=== PATIENT | female | born 1950 | race Caucasian/White ===

== ENCOUNTER 2018-08-11 15:21 | Emergency (ER) | payer MEDICARE, OTHER ==
[2018-08-11] MEDS ORDERED: NS(*) 0.9% 1000 ML BAG 1,000 ML IV ONE ×2 (15:45→17:05)
[2018-08-11 15:53] LABS: PLATELET COUNT, AUTOMATED 176 K/uL (150-450)
[2018-08-11 16:03] LABS: INR 1.29
--- NOTE | 2018-08-11 16:08 | ER Report ---
History and Physical Time Seen By MD: 15:44 Hx. of Stated Complaint: TX UNCONSIOUS IN VEHICLE RESPONSIVE TO STERNAL RUB, ABLE TO AROUSE AND GET INTO WHEELCHAIR. SAYS THIS HAPPENS AT HIGH ALTITUDE. HPI/ROS CHIEF COMPLAINT: Confused since [place] HISTORY OF PRESENT ILLNESS: Pt her with mental status change. states "this happens whenever she get to high altitude. I thought putting a scopolamine patch and oxygen would prevent it". Pt states they are moving from [place] to [place]. Started getting confused in [place] yesterday. C/o more sob. put her on portable oxygen 3 liters. Pt blood sugar started getting elevated last night. This am read high on machine. Pt is on insulin pump. Today when driving from [place] became more confused. PT passed out in car. On arrival pt was unresponsive but responded to noxious stimuli. Pt brought back to room. Pt denies chest pain. no headache, Pt has resting tremor but states that is not new. Pt unable to give hx. states this happend two years ago at altitude and she got better when [place]. REVIEW OF SYSTEMS: Constitutional: No fever, no chills. Eyes: No discharge. ENT: No sore throat. Cardiovascular: No chest pain, no palpitations. Respiratory: No cough, + shortness of breath. Gastrointestinal: No abdominal pain, no vomiting. Genitourinary: No hematuria. Musculoskeletal: No back pain. Skin: No rashes. Neurological: No headache, +mental status change Allergies: Coded Allergies: Penicillins (Verified Allergy, Unknown, 08/11/18) Home Meds Reported Medications Clobetasol Propionate/Emoll (CLOBETASOL EMOLLIENT 0.05% CRM) 15 Gm Cream..g., 0 TP BID 08/11/18 Fluticasone Prop 50 Mcg Ns (FLONASE 50 MCG NS) 16 Gm [place].susp, 1 SPRAY NS BID, BOT 08/11/18 Gabapentin (GABAPENTIN) 300 Mg Capsule, 600 MG PO TID, CAPSULE 08/11/18 Insulin Lispro 100 Un/Ml Vial (HUMALOG 100 U/ML VIAL) 100 Unit/1 Ml Vial, 100 UNIT SQ, VIAL 08/11/18 Insulin Glargine (LANTUS) 100 Unit/Ml Soln, 100 UNIT SUBQ, ML 08/11/18 Albuterol Sulfate (PROVENTIL HFA) 6.7 Gm Inh, 2 PUFF INH Q4-6H, INH 08/11/18 Valacyclovir Hcl (VALTREX) 1,000 Mg Tablet, 1000 MG PO 08/11/18 Montelukast Sodium (SINGULAIR) 10 Mg Tablet, 1 TAB PO QDAY, TAB 08/11/18 Glucagon (GLUCAGEN) 1 Mg Kit, 1 MG IM, KIT 08/11/18 Aspirin (ASPIRIN EC) 81 Mg Tablet.dr, 81 MG PO QDAY, TAB 08/11/18 Diazepam (DIAZEPAM) 5 Mg Tablet, 5 MG PO DAILY, #5 TAB 08/11/18 Scopolamine (Transderm-Scop) 1 Mg/3 Day Patch.td.3 08/11/18 Naloxone HCl (Narcan) 4 Mg/Actuation [place], PRN 08/11/18 Meclizine Hcl (MECLIZINE HCL) 12.5 Mg Tablet, 12.5 MG PO BID 08/11/18 Ondansetron 4 Mg Odt (ONDANSETRON 4 MG ODT) 4 Mg Tab.rapdis, 8 MG PO PRN, TAB 08/11/18 Methadone Hcl (METHADONE HCL) 10 Mg Tab, 10 MG PO Q8-12H, TAB 08/11/18 Sucralfate (CARAFATE) 1 Gm/10 Ml Oral.susp, 1 GM PO 08/11/18 Paroxetine Hcl (PAXIL) 20 Mg Tablet, 10 MG PO QDAY, TAB 08/11/18 Paroxetine Hcl (PAXIL) 20 Mg Tablet, 7.5 MG PO HS, TAB 08/11/18 Lansoprazole (PREVACID) 30 Mg Capsule.dr, 15 MG PO QDAY, CAP 08/11/18 Past Medical/Surgical History Pmhx: dm, high altitude sickness, fibromyalgia,gerd, barrets ds Pshx: pelvis fx, femur fx, volvus of colon with surgical resection Reviewed Nurses Notes: Yes Old Medical Records Reviewed: No (never here before) Smoking Status: Former Smoker Hx Alcohol Use: No Constitutional Vital Sign - Last 24 Hours 08/11/18 08/11/18 08/11/18 08/11/18 15:28 15:30 15:40 15:45 Temp 98.7 Pulse 89 79 78 Resp 26 14 23 B/P (MAP) 134/62 139/76 (97) 144/67 (92) Pulse Ox 83 93 96 O2 Delivery Nasal Cannula 08/11/18 08/11/18 08/11/18 08/11/18 15:50 16:00 16:10 16:15 Pulse 76 ??? Resp 18 B/P (MAP) 105/84 (91) 121/87 (98) ???/??? (1665) Pulse Ox 98 08/11/18 08/11/18 08/11/18 08/11/18 16:20 16:24 16:25 16:30 Pulse 79 Resp 18 B/P (MAP) 145/77 (99) 146/130 (135) Pulse Ox 94 O2 Flow Rate 3.0 3.0 08/11/18 08/11/18 08/11/18 08/11/18 16:40 16:45 16:50 17:00 Pulse 78 81 Resp 22 14 B/P (MAP) 128/51 (76) 80/67 (71) 83/66 (72) Pulse Ox 93 91 08/11/18 08/11/18 08/11/18 08/11/18 17:10 17:15 17:20 17:30 Pulse 80 79 Resp 18 25 B/P (MAP) 116/68 (84) 94/73 (80) 108/73 (85) Pulse Ox 94 91 08/11/18 08/11/18 17:40 17:45 Pulse 82 Resp 12 B/P (MAP) 101/40 (60) Pulse Ox 96 Intake and Output 08/11/18 08/11/18 08/12/18 14:59 22:59 06:59 Intake Total 1000 ml Output Total 1350 ml Balance -350 ml Physical Exam General Appearance: The patient is alert, has no immediate need for airway protection and no signs of toxicity. Eyes: Pupils equal and round no pallor or injection, EOMI ENT: no pharyngeal erythema or exudates, Mucous membranes are moist, TM are nl b/l Respiratory: There are no retractions, lungs are clear to auscultation. Cardiovascular: Regular rate and rhythm. pulses are equal and symmetrical Gastrointestinal: Abdomen is soft and non tender, no masses, bowel sounds normal, no guarding, no rigidity or rebound Neurological: Cranial nerves II-XII grossly intact, no sensory or motor loss, upper and lower extremity strength 5/5 Skin: Warm and dry, no rashes. Musculoskeletal: Neck is supple non tender, no vertebral tenderness Extremities are nontender, nonswollen and have full range of motion. DIFFERENTIAL DIAGNOSIS: After history and physical exam differential diagnosis was considered for DKA, intracranial bleed, ALtitiude sickness, electrolyte abnl, acs, syncope Medical Decision Making Data Points Result Diagram: 08/11/18 0000 08/11/18 1739 Laboratory Hematology Test 08/11/18 00:00 08/11/18 16:05 08/11/18 17:39 Red Blood Count 4.16 M/uL (4.17-5.56) Mean Corpuscular Volume 94.5 fL (80.0-96.0) Mean Corpuscular Hemoglobin 29.7 pg (26.0-33.0) Mean Corpuscular Hemoglobin Concent 31.4 g/dL (32.0-36.0) Red Cell Distribution Width 17.7 % (11.5-14.5) Mean Platelet Volume 9.8 fL (7.2-11.1) Neutrophils (%) (Auto) 88.2 % (39.4-72.5) Lymphocytes (%) (Auto) 5.4 % (17.6-49.6) Monocytes (%) (Auto) 6.1 % (4.1-12.4) Eosinophils (%) (Auto) 0.0 % (0.4-6.7) Basophils (%) (Auto) 0.3 % (0.3-1.4) Nucleated RBC Relative Count (auto) 0.0 /100WBC Neutrophils # (Auto) 10.4 K/uL (2.0-7.4) Lymphocytes # (Auto) 0.6 K/uL (1.3-3.6) Monocytes # (Auto) 0.7 K/uL (0.3-1.0) Eosinophils # (Auto) 0.0 K/uL (0.0-0.5) Basophils # (Auto) 0.0 K/uL (0.0-0.1) Nucleated RBC Absolute Count (auto) 0.00 K/uL Prothrombin Time 16.2 seconds (12.0-14.4) Prothromb Time International Ratio 1.29 Activated Partial Thromboplast Time 32 seconds (23-35) Lactate 2.8 mmol/L (0.7-2.1) Magnesium Level 2.4 mg/dl (1.7-2.2) Total Bilirubin 0.6 mg/dl (0.2-1.3) Aspartate Amino Transf (AST/SGOT) 515 U/L (0-35) Alanine Aminotransferase (ALT/SGPT) 343 U/L (0-56) Alkaline Phosphatase 212 U/L (0-126) Total Creatine Kinase 2443 U/L (30-135) Creatine Kinase MB 60 U/L Creatine Kinase MB % 2 % Troponin I 1.520 ng/ml Total Protein 6.6 g/dl (6.3-8.2) Albumin 4.1 g/dl (3.5-5.0) Serum Alcohol < 10 mg/dl Blood Gas Puncture Site Right radial Blood Gas Patient Temperature 98.0 DEGREES Arterial Blood pH 7.32 (7.35-7.45) Arterial Blood Partial Pressure CO2 50 mmHg (32-37) Arterial Blood Partial Pressure O2 96 mmHg (60-80) Arterial Blood HCO3 26 mmol/L (20-26) Arterial Blood Oxygen Saturation 97 % (92-100) Arterial Blood Base Excess 0.0 mmol/L Ryan Test Acceptable Oxygen Liters/Minute 42 Sodium Level 136 mmol/L (137-145) Potassium Level 5.1 mmol/L (3.5-5.0) Chloride Level 96 mmol/L (98-107) Carbon Dioxide Level 29 mmol/L (22-31) Blood Urea Nitrogen 51 mg/dl (7-18) Creatinine 2.30 mg/dl (0.52-1.04) Glomerular Filtration Rate Calc 21.1 Random Glucose 401 mg/dl (75-110) Calcium Level 8.7 mg/dl (8.4-10.2) Chemistry Test 08/11/18 00:00 08/11/18 16:05 08/11/18 17:39 White Blood Count 11.8 k/uL (4.5-11.0) Red Blood Count 4.16 M/uL (4.17-5.56) Hemoglobin 12.4 g/dL (12.0-16.0) Hematocrit 39.4 % (34.0-47.0) Mean Corpuscular Volume 94.5 fL (80.0-96.0) Mean Corpuscular Hemoglobin 29.7 pg (26.0-33.0) Mean Corpuscular Hemoglobin Concent 31.4 g/dL (32.0-36.0) Red Cell Distribution Width 17.7 % (11.5-14.5) Platelet Count 176 K/uL (150-450) Mean Platelet Volume 9.8 fL (7.2-11.1) Neutrophils (%) (Auto) 88.2 % (39.4-72.5) Lymphocytes (%) (Auto) 5.4 % (17.6-49.6) Monocytes (%) (Auto) 6.1 % (4.1-12.4) Eosinophils (%) (Auto) 0.0 % (0.4-6.7) Basophils (%) (Auto) 0.3 % (0.3-1.4) Nucleated RBC Relative Count (auto) 0.0 /100WBC Neutrophils # (Auto) 10.4 K/uL (2.0-7.4) Lymphocytes # (Auto) 0.6 K/uL (1.3-3.6) Monocytes # (Auto) 0.7 K/uL (0.3-1.0) Eosinophils # (Auto) 0.0 K/uL (0.0-0.5) Basophils # (Auto) 0.0 K/uL (0.0-0.1) Nucleated RBC Absolute Count (auto) 0.00 K/uL Prothrombin Time 16.2 seconds (12.0-14.4) Prothromb Time International Ratio 1.29 Activated Partial Thromboplast Time 32 seconds (23-35) Lactate 2.8 mmol/L (0.7-2.1) Magnesium Level 2.4 mg/dl (1.7-2.2) Total Bilirubin 0.6 mg/dl (0.2-1.3) Aspartate Amino Transf (AST/SGOT) 515 U/L (0-35) Alanine Aminotransferase (ALT/SGPT) 343 U/L (0-56) Alkaline Phosphatase 212 U/L (0-126) Total Creatine Kinase 2443 U/L (30-135) Creatine Kinase MB 60 U/L Creatine Kinase MB % 2 % Troponin I 1.520 ng/ml Total Protein 6.6 g/dl (6.3-8.2) Albumin 4.1 g/dl (3.5-5.0) Serum Alcohol < 10 mg/dl Blood Gas Puncture Site Right radial Blood Gas Patient Temperature 98.0 DEGREES Arterial Blood pH 7.32 (7.35-7.45) Arterial Blood Partial Pressure CO2 50 mmHg (32-37) Arterial Blood Partial Pressure O2 96 mmHg (60-80) Arterial Blood HCO3 26 mmol/L (20-26) Arterial Blood Oxygen Saturation 97 % (92-100) Arterial Blood Base Excess 0.0 mmol/L Ryan Test Acceptable Oxygen Liters/Minute 42 Glomerular Filtration Rate Calc 21.1 Calcium Level 8.7 mg/dl (8.4-10.2) Coagulation Test 08/11/18 00:00 Prothrombin Time 16.2 seconds Prothromb Time International Ratio 1.29 Activated Partial Thromboplast Time 32 seconds Toxicology Test 08/11/18 00:00 Serum Alcohol < 10 mg/dl EKG/Imaging EKG Interpretation NSr @ 77 with t wave inversions V1-4 Imaging no cardimegally, question of patchy are on right, Compression fx of T11 ED Course/Re-evaluation Clinical Indication for ER IV: IV Access ED Course 08/11/2018 4:31:29 pm Pts labs are coming back abnormal. Pts blood sugar is in 600s and potassium is above 6. will give IV insulin. Pt is also getting Fluids. PTs troponin also elevated. Pts renal function is abnormal. Repeat ekg after troponin is similar to initial ekg with inverted t waves. Pt denies chest pain and states her breathing is better on oxygen. PTs xray does show a hazy area on right side however pt denies a cough and is afebrile, it was suggested to have it followed with repeat imaging. I did discuss with pt and the need for transfer. They would like to [place] [facility]. They are okay with [facility]. Will await CT and then call [facility]. 08/11/2018 4:46:[address] of head is negative for bleed. Call out to [facility] 08/11/2018 5:29:21 pm Nixon being placed in patient for monitoring I/Os. Pts cpk is elevated but CKMB index is normal. I suspect pt is dry. Pt has second Liter of NSS hanging. PT was accepted by Dr. rizzo at [facility] to medical floor. Will recheck pts BMP prior to transfer. 08/11/2018 6:09:24 pm PTs repeat bmp is back. will redose of 5mg Insulin IV. EMS is here for transport. PT is stable at this time for transport Decision to Disposition Date: Aug 11, 2018 Decision to Disposition Time: 17:33 Depart Departure Latest Vital Signs Vital Signs Date Time Temp Pulse Resp B/P (MAP) Pulse Ox O2 Delivery O2 Flow Rate FiO2 08/11/18 17:45 82 12 96 08/11/18 17:40 101/40 (60) 08/11/18 16:25 3.0 08/11/18 15:28 98.7 Nasal Cannula Impression: Primary Impression: Hyperglycemia without ketosis Additional Impressions: Mental status alteration Renal insufficiency Elevated troponin Syncope Hyperkalemia Condition: Condition Unchanged Disposition: XFER TO [facility] Problem Qualifiers Additional Impressions: Mental status alteration Altered mental status type: unspecified Qualified Codes: R41.82 - Altered mental status, unspecified Syncope Syncope type: unspecified Qualified Codes: R55 - Syncope and collapse LUIS ADAMS DO Aug 11, 2018 16:08
--- NOTE | 2018-08-11 16:20 | EKG ---
FACILITY: [facility] PATIENT NAME: SRIDEVI BARROS : [id number] MR: [id number] V: [id number] EXAM DATE: ORDERING PHYSICIAN: LUIS ADAMS TECHNOLOGIST: JHONATHAN Test Reason : ALTERED MENTAL STATUs Blood Pressure : / mmHG Vent. Rate : 080 BPM Atrial Rate : 080 BPM P-R Int : 166 ms QRS Dur : 084 ms QT Int : 318 ms P-R-T Axes : 055 088 -12 degrees QTc Int : 366 ms Normal sinus rhythm ST and T wave abnormality, consider anterior ischemia Abnormal ECG No previous ECGs available Confirmed by CLAUDIA PEGUERO ([id number]) on 08/12/2018 12:59:40 AM Referred By: DONNA Confirmed By:CLAUDIA PEGUERO
--- NOTE | 2018-08-11 16:26 | RADIOLOGY IMAGING REPORT ---
FACILITY: [facility] - [place] PATIENT NAME: Corin Ndiaye : 1950 MR: [id number] V: [id number] EXAM DATE: ORDERING PHYSICIAN: LUIS ADAMS TECHNOLOGIST: Location: [facility] [place] Patient: Corin Ndiaye : 1950 Visit/Account:[id number] Date of Sevice: 08/11/2018 2 VIEWS CHEST INDICATION: Syncope, confusion and chest pain. COMPARISON: None available FINDINGS: Cardiomediastinal silhouette and pulmonary vessels within normal limits. Patchy hazy opacities seen in the right midlung. The remaining lung moraes are clear. There is no pneumothorax or pleural effusion. No discrete nodule. Upper abdomen is unremarkable. There is mild compression of the T11 vertebral body without retropulsi on. No other indication of acute fracture or bony lesion. IMPRESSION: 1. Patchy hazy opacities seen in the right midlung may represent early pneumonia. Suggest follow-up f ilms to assess for clearing or other etiologies. 2. Mild compression of the T11 vertebral body without retropulsion. Age of which is indeterminate. Report Dictated By: Jersey Loyola at 08/11/2018 4:21 PM Report E-Signed By: Jersey Loyola at 08/11/2018 4:22 PM WSN:[id number]
[2018-08-11] MEDS ORDERED: INSU HUM REG 100 U/ML(ER ONLY) 10 ML VIAL IV ONE (16:30)
--- NOTE | 2018-08-11 16:33 | EKG ---
FACILITY: [facility] - [place] PATIENT NAME: SRIDEVI BARROS : [id number] MR: [id number] V: [id number] EXAM DATE: ORDERING PHYSICIAN: LUIS ADAMS TECHNOLOGIST: JHONATHAN Test Reason : REPEAT Blood Pressure : / mmHG Vent. Rate : 077 BPM Atrial Rate : 077 BPM P-R Int : 152 ms QRS Dur : 084 ms QT Int : 364 ms P-R-T Axes : 063 087 -10 degrees QTc Int : 411 ms Normal sinus rhythm T wave abnormality, consider anterior ischemia Abnormal ECG When compared with ECG of 11-AUG-2018 15:24, Relatively unchanged Confirmed by CLAUDIA PEGUERO ([id number]) on 08/12/2018 1:01:03 AM Referred By: BRYAN Confirmed By:CLAUDIA PEGUERO
--- NOTE | 2018-08-11 16:39 | RADIOLOGY IMAGING REPORT ---
FACILITY: PATIENT NAME: Corin Ndiaye : 1950 MR: [id number] V: [id number] EXAM DATE: ORDERING PHYSICIAN: LUIS ADAMS TECHNOLOGIST: Location: [facility] Patient: Corin Ndiaye : 1950 Visit/Account:[id number] Date of Sevice: 08/11/2018 CT Head without contrast Indication: Syncope and confusion. Comparison: None available Technique: Axial CT images were obtained through the brain from the skull base to the vertex without administration of IV contrast. Reformatted coronal and sagittal images were also obtained. One of the following dose optimization techniques was utilized in the performance of this exam: autom ated exposure control; adjustment of the mA and/or kV according to the patient's size; or use of an i terative reconstruction technique. Specific details can be referenced in the facility's radiology CT exam operational policy. Findings: No evidence of mass, mass effect, or midline shift. No acute intracranial hemorrhage or acute territorial infarction. No extra-axial fluid collection or hydrocephalus. Mild age-related cerebral atrophy. Mild periventric ular white matter ischemic changes consistent small vessel disease. Tello/white matter differentiation appears normal. Mild bilateral internal carotid artery calcifications. Bony structures show no fractures or lesions. The visualized paranasal sinuses and mastoid air cells are clear. IMPRESSION: 1. Mild senescent changes without acute abnormality. Report Dictated By: Jersey Loyola at 08/11/2018 4:30 PM Report E-Signed By: Jersey Loyola at 08/11/2018 4:35 PM WSN:[id number]
[2018-08-11] MEDS ORDERED: ASPIRIN 81 MG CHEW PO ONE (16:50)
[2018-08-11] MEDS ORDERED: LANI SUBQ (17:18)
[2018-08-11] MEDS ORDERED: SUCR1ORA17 PO (17:18)
[2018-08-11] MEDS ORDERED: PARO-243 PO ×2 (17:18)
[2018-08-11] MEDS ORDERED: INSU100V24 SQ (17:18)
[2018-08-11] MEDS ORDERED: MECL12.5 PO (17:18)
[2018-08-11] MEDS ORDERED: LAN30PT PO (17:18)
[2018-08-11] MEDS ORDERED: METH10 PO (17:18)
[2018-08-11] MEDS ORDERED: MONT10TA PO (17:18)
[2018-08-11] MEDS ORDERED: FLUT16SP19 NS (17:18)
[2018-08-11] MEDS ORDERED: GLUC1VIA2 IM (17:18)
[2018-08-11] MEDS ORDERED: ASPI81TA86 PO (17:18)
[2018-08-11] MEDS ORDERED: DIAZ-308 PO (17:18)
[2018-08-11] MEDS ORDERED: ONDA4TAB9 PO (17:18)
[2018-08-11] MEDS ORDERED: ALB6.7R INH (17:18)
[2018-08-11] MEDS ORDERED: CLOB15CR22 TP (17:18)
[2018-08-11] MEDS ORDERED: NALO4SPR (17:18)
[2018-08-11] MEDS ORDERED: SCOP1PAT2 (17:18)
[2018-08-11] MEDS ORDERED: VALA100062 PO (17:18)
[2018-08-11] MEDS ORDERED: GABA-549 PO (17:18)
[2018-08-11 17:40] VITALS: BP 101/40
[2018-08-11] MEDS ORDERED: INSU HUM REG 100 U/ML(ER ONLY) 10 ML VIAL IVP ONE (18:10)
== END 2018-08-11 18:30 | disposition short-term general hospital (02) ==
LOC: ER 15:34
DX: E11.65 Type 2 diabetes mellitus with hyperglycemia (principal); Z79.4 Long term (current) use of insulin; Z96.41 Presence of insulin pump (external) (internal); R41.82 Altered mental status, unspecified; N28.9 Disorder of kidney and ureter, unspecified; R79.89 Other specified abnormal findings of blood chemistry; R55 Syncope and collapse; E87.5 Hyperkalemia
CPT/HCPCS: 36600; 70450; 71046; 80320; 82040; 82247; 82310; 82374; 82435; 82553; 82565; 82803; 82947; 83605; 83735; 84075; 84132; 84155; 84295; 84450; 84460; 84484; 84520; 85025; 85610; 85730; 93005; 96361; 96374; 96376; 99285; J1815; J7030

== ENCOUNTER → 2018-08-11 | Outpatient (CLI) | payer MEDICARE, OTHER ==
[~2018-08-11] MED LIST: ALB6.7R INH; ASPI81TA86 PO; CLOB15CR22 TP; DIAZ-308 PO; FLUT16SP19 NS; GABA-549 PO; GLUC1VIA2 IM; INSU100V24 SQ; LAN30PT PO; LANI SUBQ; MECL12.5 PO; METH10 PO; MONT10TA PO; NALO4SPR; ONDA4TAB9 PO; PARO-243 PO; SCOP1PAT2; SUCR1ORA17 PO; VALA100062 PO
== END ==
LOC: AMB 17:59
PROVIDERS: ATTEND Nurse Practitioner
DX: E11.65 Type 2 diabetes mellitus with hyperglycemia (principal); I21.4 Non-ST elevation (NSTEMI) myocardial infarction; N28.9 Disorder of kidney and ureter, unspecified
CPT/HCPCS: A0425; A0426